=== PATIENT | male | born 1980 | race Caucasian/White ===

== ENCOUNTER 2016-03-31 14:32 | Emergency (ER) | payer BC ==
[2016-03-31 14:38] VITALS: BMI 27.4
[2016-03-31 14:52] LABS: AUTOMATED BASOPHIL 0.7 % (0-2); AUTOMATED LYMPH 31.6 % (17-44); AUTOMATED MONOCYTE 6.9 % (3-10); AUTOMATED NEUTROPHIL 58.8 % (45-76); MPV 7.4 fL (7.4-10.4)
[2016-03-31 14:53] LABS: LEUKOCYTES/URINE NEG (NEGATIVE); NITRITE/URINE NEG (NEGATIVE); URINE OCCULT BLOOD NEG (NEG/TRACE)
[2016-03-31 14:59] LABS: BLOOD UREA NITROGEN 11 MG/DL (9-20); CALCIUM 9.8 MG/DL (8.4-10.2); CALCULATED OSMOLALITY 268 MOs/Kg (270-290); CHLORIDE 104 mEq/L (98-107); GLUCOSE 95 MG/DL (70-99); SODIUM LEVEL 140 mEq/L (137-146); TOTAL PROTEIN 7.8 G/DL (6.3-8.2)
[2016-03-31] MEDS ORDERED: OXYCODONE HCL 5 MG TABLET PO ONE (15:52)
[2016-03-31] MEDS ORDERED: ONDANSETRON HCL 4 MG ODT TAB PO ONE (15:54)
--- NOTE | 2016-03-31 15:54 | EDPRACDOC ---
- General Information Chief Complaint: Abdominal Pain Stated Complaint: RT SIDED ABD PAIN Time Seen by Provider: 03/31/16 15:40 Information Source: Patient Mode Of Arrival: Car Home Medications: Home Medications Dicyclomine HCl [Bentyl] 20 mg PO Q8H PRN #20 tab 03/31/16 Montelukast Sodium [Singulair] 10 mg PO HS 03/31/16 Ondansetron HCl [Zofran] 4 mg PO Q8H PRN #15 tab 03/31/16 Allergies/Adverse Reactions: Allergies Allergy/AdvReac Type Severity Reaction Status Date / Time No Known Allergies Allergy Verified 03/31/16 14:38 - History of Present Illness Onset: 2 days HPI: Pt c/o R side abd pain x 2 days with nausea and diarrhea x 1. Denies fever, cough, congestion, cp, sob, changes in bladder, rash, flank pain. Pain Location: Reports: RUQ, RLQ Pain Context: Reports: Spontaneous Pain Severity: Moderate Pain Quality: Reports: Aching, Sharp Pain Radiation: Reports: No Radiation Adult Abdominal History: Denies: Abdominal Surgery, Urolithiasis, Bowel Obstruction, Similar Pain (dx) Modifying Factors: improves with: Nothing Associated Signs & Symptoms: Reports: Nausea, Diarrhea Oral Intake: Decreased Urinary Output: Normal ED Past Medical History - History Reviewed Yes Nurses notes reviewed and agree except as marked - Patient Medical History Psychological History: Denies: Depression - Social Medical History Smoking Status: Never smoker ETOH: None Substance Abuse: None EDM Review of Systems - Review of Systems Constitutional: No Symptoms Reported. negative: Fever, Chills, Weakness, Fatigue, Loss of Appetite Ears: No Symptoms Reported. negative: Pain, Hearing Loss, Drainage, Ear Pulling Throat: No Symptoms Reported. negative: Pain, Swelling Nose: No Symptoms Reported. negative: Congestion, Bleeding, Discharge, Injection, Swelling, Deformity, Ecchymosis, Tender, Abrasion, Laceration Mouth: No Symptoms Reported. negative: Pain, Drooling Respiratory: No Symptoms Reported. negative: Cough, Brassy Cough, Barky Cough, Shortness of Breath, Wheezing, Hemoptysis Cardiovascular: No Symptoms Reported. negative: Chest Pain, Palpitations, Syncope, Edema, Orthopnea, PND, Skin Mottling, Cyanosis Gastrointestinal: Diarrhea, Nausea, Pain Genitourinary: No Symptoms Reported. negative: Dysuria, Hematuria, Frequency, Discharge, Bleeding, Testicular Pain, Neurological: No Symptoms Reported. negative: Headache, Dizziness, Seizure, Numbness, Weakness, Speech Difficulty, Gait Difficulty Musculoskeletal: No Symptoms Reported. negative: Neck, Chestwall, Ribs, Back, Shoulder, Arm, Elbow, Forearm, Wrist, Hand, Pelvis, Hip, Femur, Knee, Leg, Ankle , Foot Integumentary: No Symptoms Reported. negative: Itching, Rash, Bruising, Wound Allergic/Immunologic: No Symptoms Reported. negative: Hives, Itching Hematologic: No Symptoms Reported. negative: Lymphadenopathy, Easy Bruising, Easy Bleeding Psychiatric: No Symptoms Reported. negative: Anxiety, Depression, Hallucinations, Insomnia, Suicidal - Physical Exam Constitutional: Alert Oriented to: Time, Person, Place Last recorded Vital Signs: Last Vital Signs Temp 98.4 F 03/31/16 15:51 Pulse 94 03/31/16 15:51 Resp 18 03/31/16 15:51 BP 150/84 03/31/16 15:51 Pulse Ox 99 03/31/16 15:51 Oxygen Pulse Oxygen Saturation 99 O2 Device Room Air Oxygen Flow Rate Fraction of Inspired Oxygen ( FIO2) - HEENT Head: Normal ( normocephalic) Eye Exam: Normal (PERRL, EOMI, Sclera white) Neck: Normal (FROM, trachea at midline) - Respiratory/Cardiovascular Respiratory: Normal - CTA (BBS clear to auscultation without adventitious sounds ) Cardiovascular: Normal (RRR without murmur, gallop or rub) - GI Auscultation: Normal (NABS) Palpation: Normal (Soft,No rebound or guarding, non distended) Tenderness: Mild, RUQ, RLQ - Musculoskeletal Back: Normal (Non-Tender) Extremities: Normal (Normal tone, Pulses 2+ No cyanosis or edema, FROM) - Integumentary Skin: Normal, Warm, Dry Lymphatics: Normal (no adenopathy) - Neurologic Memory Impaired: Normal Motor Function: Normal (Normal tone, Pulses 2+ No cyanosis or edema, FROM) Mood Description: Normal Perception: Normal - Differential Diagnosis Appendicitis, Cholecystitis, Cholelithiasis, Colic, Gastroenteritis, PUD, Urolithiasis, UTI - Results 03/31/16 14:40 03/31/16 14:40 WBC 7.5 xk/uL (3.8-10.8) 03/31/16 14:40 RBC 5.25 xM/uL (4.70-6.10) 03/31/16 14:40 Hgb 15.9 g/dL (14.0-18.0) 03/31/16 14:40 Hct 47.0 % (42-52) 03/31/16 14:40 MCV 90 fL (80-94) 03/31/16 14:40 MCH 30.3 pg (27-32) 03/31/16 14:40 MCHC 33.8 g/dl (33-36) 03/31/16 14:40 RDW 12.6 % (11.5-14.5) 03/31/16 14:40 Plt Count 283 xk/uL (130-400) 03/31/16 14:40 MPV 7.4 fL (7.4-10.4) 03/31/16 14:40 Neut % (Auto) 58.8 % (45-76) 03/31/16 14:40 Lymph % (Auto) 31.6 % (17-44) 03/31/16 14:40 [place] % (Auto) 6.9 % (3-10) 03/31/16 14:40 Eos % (Auto) 2.0 % (0-5) 03/31/16 14:40 Baso % (Auto) 0.7 % (0-2) 03/31/16 14:40 Absolute Neuts (auto) 4.35 xk/uL (1.7-8.2) 03/31/16 14:40 Absolute Lymphs (auto) 2.33 xk/uL (0.65-4.75) 03/31/16 14:40 Sodium 140 mEq/L (137-146) 03/31/16 14:40 Potassium 4.3 mEq/L (3.5-5.1) 03/31/16 14:40 Chloride 104 mEq/L (98-107) 03/31/16 14:40 Carbon Dioxide 26 mMOL/L (22-33) 03/31/16 14:40 Anion Gap 14 mEq/L (8-16) 03/31/16 14:40 BUN 11 MG/DL (9-20) 03/31/16 14:40 Creatinine 0.90 MG/DL (0.66-1.25) 03/31/16 14:40 Estimated GFR (MDRD) > 60 mL/min (>=60) 03/31/16 14:40 Glucose 95 MG/DL (70-99) 03/31/16 14:40 Calculated Osmolality 268 MOs/Kg (270-290) L 03/31/16 14:40 Calcium 9.8 MG/DL (8.4-10.2) 03/31/16 14:40 Total Bilirubin 0.6 MG/DL (0.2-1.3) 03/31/16 14:40 AST 22 IU/L (17-59) 03/31/16 14:40 ALT 47 IU/L (21-72) 03/31/16 14:40 Alkaline Phosphatase 55 IU/L (38-126) 03/31/16 14:40 Total Protein 7.8 G/DL (6.3-8.2) 03/31/16 14:40 Albumin 4.8 G/DL (3.5-5.0) 03/31/16 14:40 Urine Color Pale yellow 03/31/16 14:40 Urine Clarity Clear 03/31/16 14:40 Urine pH 8.0 (5.0-8.0) 03/31/16 14:40 Ur Specific Vale 1.010 (1.003-1.035) 03/31/16 14:40 Urine Protein Neg (NEG/TRACE) 03/31/16 14:40 Urine Glucose (UA) Neg (NEGATIVE) 03/31/16 14:40 Urine Ketones Neg (NEGATIVE) 03/31/16 14:40 Urine Occult Blood Neg (NEG/TRACE) 03/31/16 14:40 Urine Nitrite Neg (NEGATIVE) 03/31/16 14:40 Urine Bilirubin Neg (NEGATIVE) 03/31/16 14:40 Urine Urobilinogen <2.0 MG/DL (0-1) 03/31/16 14:40 Ur Leukocyte Esterase Neg (NEGATIVE) 03/31/16 14:40 Lab Results 03/31/16 03/31/16 03/31/16 14:40 14:40 14:40 WBC 7.5 RBC 5.25 Hgb 15.9 Hct 47.0 MCV 90 MCH 30.3 MCHC 33.8 RDW 12.6 Plt Count 283 MPV 7.4 Neut % (Auto) 58.8 Lymph % (Auto) 31.6 [place] % (Auto) 6.9 Eos % (Auto) 2.0 Baso % (Auto) 0.7 Absolute Neuts (auto) 4.35 Absolute Lymphs (auto) 2.33 Sodium 140 Potassium 4.3 Chloride 104 Carbon Dioxide 26 Anion Gap 14 BUN 11 Creatinine 0.90 Estimated GFR (MDRD) > 60 Glucose 95 Calculated Osmolality 268 L Calcium 9.8 Total Bilirubin 0.6 AST 22 ALT 47 Alkaline Phosphatase 55 Total Protein 7.8 Albumin 4.8 Urine Color Pale yellow Urine Clarity Clear Urine pH 8.0 Ur Specific [place] 1.010 Urine Protein Neg Urine Glucose (UA) Neg Urine Ketones Neg Urine Occult Blood Neg Urine Nitrite Neg Urine Bilirubin Neg Urine Urobilinogen <2.0 Ur Leukocyte Esterase Neg - Diagnostic Imaging Abdomen Image interpreted by: Radiologist 03/31/16 16:35 FINDINGS: Lower chest: Unremarkable. Hepatobiliary: No focal abnormality in the liver on this study without intravenous contrast. No evidence of hepatomegaly. There is no evidence for gallstones, gallbladder wall thickening, or pericholecystic fluid. No intrahepatic or extrahepatic biliary dilation. Pancreas: No focal mass lesion. No dilatation of the main duct. No intraparenchymal cyst. No peripancreatic edema. Spleen: No splenomegaly. No focal mass lesion. Adrenals/Urinary Tract: No adrenal nodule or mass. Kidneys have normal uninfused CT imaging features. Specifically, no renal stones. No evidence for hydroureter. No ureteral stones. The urinary bladder appears normal for the degree of distention. Stomach/Bowel: Stomach is nondistended. No gastric wall thickening. No evidence of outlet obstruction. Duodenum is normally positioned as is the ligament of Treitz. No small bowel wall thickening. No small bowel dilatation. The terminal ileum is normal. The appendix is normal. No gross colonic mass. No colonic wall thickening. No substantial diverticular change. Vascular/Lymphatic: No abdominal aortic aneurysm. No abdominal atherosclerotic calcification. There is no gastrohepatic or hepatoduodenal ligament lymphadenopathy. No intraperitoneal or retroperitoneal lymphadenopathy. No pelvic sidewall lymphadenopathy. Reproductive: The prostate gland and seminal vesicles have normal imaging features. Other: No intraperitoneal free fluid. Musculoskeletal: Bone windows reveal no worrisome lytic or sclerotic osseous lesions. No inguinal or abdominal wall hernia. IMPRESSION: Normal uninfused CT imaging of the abdomen and pelvis. No findings to explain the patient's history of right lower quadrant pain. Decision Time to Discharge: 16:35 - Departure Disposition: Home Condition: Good Final Diagnosis: Abdominal pain Qualifiers: Abdominal location: right lower quadrant Qualified Code(s): R10.31 - Right lower quadrant pain Diarrhea Qualifiers: Diarrhea type: unspecified type Qualified Code(s): R19.7 - Diarrhea, unspecified Instructions: Non-pharmacological Pain Management Therapies for Adults (GEN), Abdominal Pain (ED), Acute Diarrhea (ED) Education/Counseling Given To: Patient Education/Counseling Given Regarding: Diagnosis, Treatment, Follow Up Referrals: Zane Capps MD [Primary Care Provider] - One Week Prescriptions: New Dicyclomine HCl [Bentyl] 20 mg PO Q8H PRN #20 tab PRN Reason: Pain Ondansetron HCl [Zofran] 4 mg PO Q8H PRN #15 tab PRN Reason: Nausea/Vomiting No Action Montelukast Sodium [Singulair] 10 mg PO HS Additional Instructions: Drink sips of Gatorade every 2-3 minutes while awake. Do NOT drink large volumes of fluid at once. If you vomit, take the nausea-vomiting medicine prescribed, wait ~ 30 minutes, and restart the sipping process. Return to the Emergency Department if you think you are getting dehydrated, have persistent abdominal pain that is unrelenting, have worse or different symptoms, or any concerns.
--- NOTE | 2016-03-31 16:31 | DIRPT ---
CLINICAL DATA: Right lower quadrant pain for 2 day knees. EXAM: CT ABDOMEN AND PELVIS WITHOUT CONTRAST TECHNIQUE: Multidetector CT imaging of the abdomen and pelvis was performed following the standard protocol without IV contrast. COMPARISON: None. FINDINGS: Lower chest: Unremarkable. Hepatobiliary: No focal abnormality in the liver on this study without intravenous contrast. No evidence of hepatomegaly. There is no evidence for gallstones, gallbladder wall thickening, or pericholecystic fluid. No intrahepatic or extrahepatic biliary dilation. Pancreas: No focal mass lesion. No dilatation of the main duct. No intraparenchymal cyst. No peripancreatic edema. Spleen: No splenomegaly. No focal mass lesion. Adrenals/Urinary Tract: No adrenal nodule or mass. Kidneys have normal uninfused CT imaging features. Specifically, no renal stones. No evidence for hydroureter. No ureteral stones. The urinary bladder appears normal for the degree of distention. Stomach/Bowel: Stomach is nondistended. No gastric wall thickening. No evidence of outlet obstruction. Duodenum is normally positioned as is the ligament of Treitz. No small bowel wall thickening. No small bowel dilatation. The terminal ileum is normal. The appendix is normal. No gross colonic mass. No colonic wall thickening. No substantial diverticular change. Vascular/Lymphatic: No abdominal aortic aneurysm. No abdominal atherosclerotic calcification. There is no gastrohepatic or hepatoduodenal ligament lymphadenopathy. No intraperitoneal or retroperitoneal lymphadenopathy. No pelvic sidewall lymphadenopathy. Reproductive: The prostate gland and seminal vesicles have normal imaging features. Other: No intraperitoneal free fluid. Musculoskeletal: Bone windows reveal no worrisome lytic or sclerotic osseous lesions. No inguinal or abdominal wall hernia. IMPRESSION: Normal uninfused CT imaging of the abdomen and pelvis. No findings to explain the patient's history of right lower quadrant pain. Electronically Signed By: Kwesi Myers M.D. On: 03/31/2016 16:29
[2016-03-31 16:47] VITALS: BP 116/78; PULSE 78; TEMP 98.3
== END 2016-03-31 16:51 | disposition home or self-care (01) ==
LOC: EDMC 14:32
DX: R10.31 Right lower quadrant pain (principal); R19.7 Diarrhea, unspecified
CPT/HCPCS: 36415; 74176; 80053; 81001; 85025; 99283; J3490